=== PATIENT | female | born 1975 | race Caucasian/White ===

== ENCOUNTER 2017-11-03 22:47 | Emergency (ER) | payer BC, OTHER ==
--- NOTE | 2017-11-03 23:21 | ED ---
General Adult HPI - General Chief complaint: Extremity Injury, Lower Stated complaint: R Knee Injury Time Seen by Provider: 11/03/17 23:08 Source: patient Mode of arrival: wheelchair Limitations: no limitations - History of Present Illness Initial comments: patient presents with chief complaint of right knee pain. The patient stated that she was walking up the stairs and felt a pop. Patient states that she has pain with walking now. She does not identify any specific incident or injury. Aggravating factors are weightbearing and moving the knee. Alleviating factors are rest. Timing is constant. Patient has a history of arthritis in the right knee. - Related Data Home Medications Medication Instructions Recorded Confirmed Bisoprolol-Hctz 2.5-6.25 mg [Ziac 1 tab PO DAILY 04/15/16 11/03/17 2.5-6.25 MG] Cranberry Fruit Extract [Cranberry] 200 mg PO DAILY 11/03/17 11/03/17 Naproxen 500 mg PO BID PRN 11/03/17 11/03/17 diphenhydrAMINE HCL [Benadryl] 25 mg PO DAILY PRN 11/03/17 11/03/17 methylPREDNISolone [Medrol Dose See Taper PO DIRECTED 11/03/17 11/03/17 Pack] Previous Rx's Medication Instructions Recorded HYDROcodone/APAP 5-325MG [[place] 1 tab PO Q6HR PRN #12 tab 11/04/17 5-325] Allergies Allergy/AdvReac Type Severity Reaction Status Date / Time Sulfa (Sulfonamide Allergy Rash/Hives Verified 11/03/17 23:12 Antibiotics) Review of Systems ROS Statement: Those systems with pertinent positive or pertinent negative responses have been documented in the HPI. ROS Other: All systems not noted in ROS Statement are negative. Constitutional: Denies: fever Eyes: Denies: vision change ENT: Denies: throat pain Respiratory: Denies: cough Cardiovascular: Denies: chest pain Gastrointestinal: Denies: abdominal pain Genitourinary: Denies: dysuria Musculoskeletal: Reports: arthralgia. Denies: back pain Skin: Denies: rash Neurological: Denies: headache Past Medical History Past Medical History: Hypertension Additional Past Medical History / Comment(s): migraines History of Any Multi-Drug Resistant Organisms: None Reported Past Surgical History: Tubal Ligation Additional Past Surgical History / Comment(s): uterine ablation Past Psychological History: No Psychological Hx Reported Smoking Status: Never smoker Past Alcohol Use History: None Reported Past Drug Use History: None Reported General Exam Limitations: no limitations General appearance: alert, in no apparent distress Head exam: Present: atraumatic, normocephalic Respiratory exam: Present: normal lung sounds bilaterally Cardiovascular Exam: Present: regular rate, normal rhythm GI/Abdominal exam: Present: soft Extremities exam: Present: tenderness, other (examination of the right knee does not show impressive swelling or ecchymosis. There is no tenderness to palpation of the popliteal fossa. There is some valgus tests are negative. Anterior drawer test is positive for pain) Back exam: Present: normal inspection Neurological exam: Present: alert, oriented X3 Psychiatric exam: Present: normal affect, normal mood Skin exam: Present: warm, dry, intact Course Vital Signs 11/03/17 23:04 Temperature 98.2 F Pulse Rate 90 Respiratory 18 Rate Blood Pressure 120/71 O2 Sat by Pulse 98 Oximetry Medical Decision Making - Medical Decision Making patient presents with a chief complaint of right knee pain after she heard a pop walking up the stairs. Physical examination shows pain with anterior drawer test. Knee is otherwise unremarkable. X-rays of the right knee are negative for acute fractures. I discussed the findings and results of the patient. I discussed that she will likely need orthopedic follow-up and an MRI as there is a suspected ACL injury. Patient was given a dose of [place] in the emergency department. I discussed that I will give her a short course of pain medication and that she can use naproxen or Motrin as needed. Patient will be placed in a knee brace and discharged with crutches. She was given Signs and symptoms that should probably return visit to the emergency department. She was instructed to follow with orthopedics and primary care. Disposition Clinical Impression: Knee pain, acute Disposition: HOME SELF-CARE Condition: Good Instructions: Knee Sprain (ED), ACL Injury (ED) Referrals: Louann Oglesby MD [Primary Care Provider] - 1-2 days
[2017-11-03] MEDS ORDERED: HYDROcodone/APAP 5-325MG 1 EACH TAB PO STA (23:28)
--- NOTE | 2017-11-03 23:56 | XR ---
EXAM: XR Right Knee, 3 views CLINICAL HISTORY: Reason: Pain TECHNIQUE: Three views of the right knee. COMPARISON: No relevant prior studies available. FINDINGS: Bones/joints: No evidence of fracture or dislocation. No significant arthritic changes. No evidence of bony erosion. Soft tissues: No evidence of knee joint effusion. IMPRESSION: No significant bone or joint abnormalities.
[2017-11-04 00:56] VITALS: BP 118/70; PULSE 58; RESP 16
[2017-11-04 01:17] VITALS: TEMP 97.4
== END 2017-11-04 01:12 | disposition home or self-care (01) ==
LOC: EC 22:47
DX: M25.561 Pain in right knee (principal); I10 Essential (primary) hypertension; M17.11 Unilateral primary osteoarthritis, right knee; Z79.52 Long term (current) use of systemic steroids; Z79.899 Other long term (current) drug therapy; Z88.2 Allergy status to sulfonamides; X50.9XXA Other and unspecified overexertion or strenuous movements or postures, initial encounter; Y93.01 Activity, walking, marching and hiking
CPT/HCPCS: 99283

== ENCOUNTER → 2019-02-25 | Outpatient (CLI) | payer OTHER ==
--- NOTE | 2019-02-25 09:49 | US ---
EXAMINATION TYPE: US liver DATE OF EXAM: 02/25/2019 COMPARISON: NONE CLINICAL HISTORY: R94.5 Abn liver function test. Abnormal liver function test, intermittent abdomen p ain, hx of cholecystectomy EXAM MEASUREMENTS: Liver Length: 17.3 cm Gallbladder Wall: surgically absent CBD: 0.5 cm Right Kidney: 13.2 x 6.0 x 5.3 cm Difficult and limited study due to patient body habitus Pancreas: limited by overlying midline bowel gas Liver: measures in upper limits of normal, attenuating, heterogeneous Gallbladder: surgically absent Evidence for sonographic Alston's sign: no CBD: wnl Right Kidney: wnl IMPRESSION: 1. Liver is increased in attenuation. Finding is nonspecific and be seen with fatty infiltration, hep atitis or diffuse hepatocellular disease.
== END | disposition home or self-care (01) ==
LOC: RADUSWWP 09:13
PROVIDERS: ATTEND Internal Medicine
DX: R93.2 Abnormal findings on diagnostic imaging of liver and biliary tract (principal); R94.5 Abnormal results of liver function studies
CPT/HCPCS: 76705

== ENCOUNTER → 2019-08-25 | Outpatient (CLI) | payer OTHER ==
--- NOTE | 2019-08-25 15:46 | XR ---
Right wrist HISTORY: Right wrist pain 4 views of the right wrist Bone mineralization, joint spaces and alignment are maintained. Dorsal angulation of the ulna on the lateral exam may be positional, correlate. IMPRESSION: No evident fracture. Additional findings above.
== END | disposition home or self-care (01) ==
LOC: RADXRMAIN 15:00
PROVIDERS: ATTEND Emergency Medicine
DX: M21.831 Other specified acquired deformities of right forearm (principal)

== ENCOUNTER → 2021-03-17 | Outpatient (CLI) | payer OTHER ==
--- NOTE | 2021-03-17 21:34 | MR ---
EXAMINATION TYPE: MR knee RT wo con DATE OF EXAM: 03/17/2021 COMPARISON: None HISTORY: Right knee pain, pain behind knee, and locking for 3 years. Multiplanar multiecho imaging of the right knee was performed without contrast. The anterior and posterior cruciate ligaments are intact. There is irregular 3.4 x 2 cm area of incre ased signal on the proton density images in the proximal tibial metaphysis. This has decreased signal on T1 images. This could be a fibroadenoma. Margins have sharp edges and benign appearance. There is no expansion. There is 12 x 8 mm focus of increased signal in the anterior proximal tibia close to t he articular surface. This could be degenerative cyst formation. There is thickening of the posterior aspect of the posterior cruciate ligament. There is horizontal increased signal through the anterior horn of the lateral meniscus. This extends to the inferior surface. There is some degenerative thinning of the medial meniscus. There is mild sp urring of the femoral and tibial condyles. There is no evidence of a fracture. The collateral ligamen ts appear intact. There is 27 x 4 mm popliteal cyst. IMPRESSION: Osteoarthritic changes at the knee joint. Large horizontal tear of the anterior horn of the lateral m eniscus. Degenerative thinning of the medial meniscus. No ligamentous tear. Largest lesion in the pro ximal tibia is probably benign. Degenerative cyst formation in the proximal tibia. Mild knee joint ef fusion. Small popliteal cyst.
== END | disposition home or self-care (01) ==
LOC: RADMRIMAIN 14:18
PROVIDERS: ATTEND Orthopaedic Surgery
DX: M23.351 Other meniscus derangements, posterior horn of lateral meniscus, right knee (principal); M17.11 Unilateral primary osteoarthritis, right knee; M71.21 Synovial cyst of popliteal space [Baker], right knee

== ENCOUNTER → 2021-04-11 | Outpatient (CLI) | payer OTHER ==
[2021-04-11 14:48] LABS: Basophils % (A) 0 %; Eosinophils # (A) 0.3 k/uL (0-0.7); Eosinophils % (A) 4 %; HCT 39.4 % (34.0-46.0); HGB 13.3 gm/dL (11.4-16.0); Lymphocytes # (A) 1.8 k/uL (1.0-4.8); Lymphocytes % (A) 23 %; MCH 31.5 pg (25.0-35.0); MCHC 33.8 g/dL (31.0-37.0); MCV 93.2 fL (80.0-100.0); Mean Platelet Volume 7.9; Monocytes # (A) 0.5 k/uL (0-1.0); Monocytes % (A) 6 %; Neutrophils % (A) 65 %; Platelet Count 202 k/uL (150-450); RBC 4.23 m/uL (3.80-5.40); RDW 12.6 % (11.5-15.5); WBC 7.7 k/uL (3.8-10.6)
== END | disposition home or self-care (01) ==
LOC: LABPAT 13:44
PROVIDERS: ATTEND Orthopaedic Surgery
DX: Z01.812 Encounter for preprocedural laboratory examination (principal); M23.91 Unspecified internal derangement of right knee
CPT/HCPCS: 36415; 80051; 85025

== ENCOUNTER → 2021-04-23 | Outpatient (CLI) | payer OTHER | END | disposition home or self-care (01) | LOC: LABPAT 10:13 | PROVIDERS: ATTEND Orthopaedic Surgery | DX: Z01.818 Encounter for other preprocedural examination (principal); I10 Essential (primary) hypertension; R94.31 Abnormal electrocardiogram [ECG] [EKG] | CPT/HCPCS: 93005 ==

== ENCOUNTER 2021-04-26 12:23 | Day surgery (SDC) | payer OTHER ==
[2021-04-19 14:58] VITALS: BMI 40.3
--- NOTE | 2021-04-25 22:04 | HP ---
HISTORY AND PHYSICAL REASON FOR ADMISSION: Surgery scheduled for 04/26/2021 HISTORY OF PRESENT ILLNESS: Arina Polanco is a 45-year-old patient seen with progressive right knee pain. We discussed options. This patient elected to proceed with arthroscopy. Consent was obtained. PAST MEDICAL HISTORY: Hypertension, chronic low back pain. SURGICAL HISTORY: Knee arthroscopy. DAILY MEDICATIONS: Hydrocodone, aspirin, bisoprolol. ALLERGIES: SULFA. SOCIAL HISTORY: She denies current tobacco use. PHYSICAL EVALUATION OF THE RIGHT KNEE: Range of motion zero to 130. Mild effusion. Tenderness medial and lateral joint lines. Positive medial Robbin's. Patellar crepitus with range of motion. Ligaments stable. Hip rotation without pain. Distal neurovascular exam is intact. RADIOGRAPHS: Radiographs of the right knee revealed mild osteoarthritis MRI right knee revealed meniscal tear and joint effusion. IMPRESSION: 1. Internal derangement of right knee with meniscal tear. 2. Hypertension. 3. Chronic back pain. PLAN: Right knee arthroscopy with partial meniscectomy and debridement. Surgery scheduled for 04/26/2021. MMODL / IJN: [id number] /
[~2021-04-26 12:23] MED LIST: DEXAMETHASONE SOD PHOSPHATE 4 MG/ML 1 ML VIAL IV ONE; HYDROmorphone 0.5 MG/0.5 ML SYRINGE IVP PRN; LACTATED RINGERS 1,000 ML IV SCH; ONDANSETRON 4 MG/2 ML VIAL IVP ONE
[2021-04-26 13:12] VITALS: TEMP 97
[2021-04-26] MEDS ORDERED: LIDOCAINE 1% (10MG/ML) FOR IV START INTRADERMA ONE (13:19)
[2021-04-26] MEDS ORDERED: BUPIVACAINE (PF) 0.25% 30 ML VIAL SQ ONE (13:39)
[2021-04-26] MEDS ORDERED: LIDOCAINE 1% INJ 10MG/ML (20 ML MDV) ONE (13:40)
[2021-04-26] MEDS ORDERED: MIDAZOLAM 2 MG/2 ML VIAL ONE (13:40)
[2021-04-26] MEDS ORDERED: KETOROLAC 15 MG/ML 1 ML VIAL ONE (13:40)
[2021-04-26] MEDS ORDERED: PROPOFOL 10 MG/ML 20 ML VIAL IV ONE (13:40)
[2021-04-26] MEDS ORDERED: fentaNYL (PF) 50 MCG/ML 2 ML AMP ONE (13:40)
[2021-04-26] MEDS ORDERED: SUCCINYLCHOLINE CHLORIDE 100 MG/5 ML SYR IV ONE (13:40)
--- NOTE | 2021-04-26 14:27 | P.OP ---
Date of Procedure: 04/26/21 Preoperative Diagnosis: Internal derangement right knee Postoperative Diagnosis: 1. Tear medial meniscus right knee 2. Partial ACL tear right knee 3. Grade 2 chondromalacia medial femoral condyle 4. Reactive synovitis medial, lateral and suprapatellar compartments right knee Procedure(s) Performed: 1. Arthroscopic partial medial meniscectomy right knee 2. Arthroscopic chondroplasty medial femoral condyle right knee 3. Arthroscopic debridement ACL tear 4. Arthroscopic partial synovectomy medial, lateral and suprapatellar compartments right knee Anesthesia: LOUISEA, local Surgeon: Ramez Croft Estimated Blood Loss (ml): 7 Pathology: none sent Condition: stable Disposition: PACU Indications for Procedure: 45-year-old patient seen with progressive right knee pain. After treatment options were discussed, she elected to proceed with arthroscopy. Operative Findings: see description of procedure Description of Procedure: Patient was taken to the operative suite. Patient underwent a general anesthetic by the department of anesthesia. Patient was given preoperative antibiotics. The right lower extremity was placed in a well-padded arthroscopic leg bedolla. The right leg was prepped and draped in the normal sterile orthopedic fashion. A lateral parapatellar and suprapatellar incision was made. Trochars were inserted. Arthroscopy was initiated. Suprapatellar pouch revealed diffuse thick reactive synovitis. The patellofemoral joint appeared to articulate congruently. There was grade 1/2 chondromalacia patella with no osteochondral tears present.. The scope was guided into the medial gutter. No loose bodies or plica were identified. The scope was then guided into the medial compartment. A medial parapatellar incision was made. Trocar inserted followed by probe. There was a radial tear involving the posterior horn of the medial meniscus. There were grade 2 chondromalacia changes of the medial femoral condyle with some osteochondral flap tears present. There was thick reactive synovitis anteriorly. I performed a partial medial meniscectomy getting down to stable meniscal tissue. I performed a chondroplasty of the medial femoral condyle getting down to stable osteochondral tissue. I performed a partial synovectomy decompressing the thick reactive synovitis anteriorly. Shaver was removed. The residual meniscus was stable. The residual osteochondral surface was stable. There was good decompression of the synovitis. Scope and probe were then guided into the intercondylar notch. There was significant partial tearing of the anterior cruciate ligament. I introduced a motorized shaver and debrided that down to stable ligamentous tissue. I estimated approximately 60% debridement of the ACL with maybe 40% of the fibers remaining. The residual fibers of the ACL appeared stable with some good intraoperative stability of the knee. The scope and probe were then guided into lateral compartment. Lateral meniscus was probed and was found to be stable. There was no significant chondromalacia present. There was some reactive synovitis anteriorly. I introduced a motorized shaver and performed a partial synovectomy. The shaver was removed. There was good decompression of the synovitis. I guided the scope into the suprapatellar compartment. I introduced a motorized shaver and debrided some piecemeal fragments of meniscus I encountered. I performed a partial synovectomy. Shaver was removed. There appeared be good decompression of the synovitis. I took one more look around the entire knee, no residual debris. The joint was infiltrated with .25% Marcaine. Steri-Strips were applied to the portal sites. Sterile dressings were applied. The patient was placed into a NITZA hose. No tourniquet was utilized. The patient was awakened, transferred to a bed and taken to recovery stable satisfactory condition.
[2021-04-26 15:29] VITALS: BP 133/78; PULSE 78; RESP 18
== END 2021-04-26 15:38 | disposition home or self-care (01) ==
LOC: OR 12:23
PROVIDERS: ATTEND Orthopaedic Surgery
DX: M23.203 Derangement of unspecified medial meniscus due to old tear or injury, right knee (principal); S83.511A Sprain of anterior cruciate ligament of right knee, initial encounter; X58.XXXA Exposure to other specified factors, initial encounter; M22.41 Chondromalacia patellae, right knee; M65.861 Other synovitis and tenosynovitis, right lower leg; I10 Essential (primary) hypertension; G89.29 Other chronic pain; M54.9 Dorsalgia, unspecified; Z98.890 Other specified postprocedural states; Z90.49 Acquired absence of other specified parts of digestive tract; Z98.51 Tubal ligation status; Z79.82 Long term (current) use of aspirin; Z79.891 Long term (current) use of opiate analgesic; Z79.899 Other long term (current) drug therapy; Z88.2 Allergy status to sulfonamides
CPT/HCPCS: 29881; 81025; J2250; J1100; J0690; J2405; J2001; J3010; J1885; J0330; J2704; J1170

== ENCOUNTER 2022-04-22 08:56 | Emergency (ER) | payer OTHER ==
[2022-04-22 09:15] VITALS: TEMP 98.2
--- NOTE | 2022-04-22 10:03 | ED ---
Back Pain HPI - General Chief Complaint: Back Pain/Injury Stated Complaint: back pain Time Seen by Provider: 04/22/22 09:16 Source: patient, RN notes reviewed Limitations: no limitations - History of Present Illness Initial Comments: 46-year-old female presents to emergency Department chief myeloma back pain. She's been having increasing issues with her back last couple weeks this is she's been moving. Patient states been lifting large amount of boxes. Patient did have some pain and radiates down her legs but is mostly located in the low back at this time. She denies any bowel, bladder and Kienitz retention or saddle anesthesias. Patient states she is on chronic [place] for knee pain prescribed by Dr. Velásquez. Patient was seen at [facility] and received a shot of steroids, gabapentin, Norflex. Patient states that has not helped states he keeps returning though she does admit that she has subsided moving. - Related Data Home Medications Medication Instructions Recorded Confirmed Bisoprol/Hydrochlorothiazide [Ziac 1 tab PO QAM 04/19/21 04/22/22 2.5-6.25 MG] HYDROcodone/APAP 7.5-325MG [[place] 1 tab PO BID PRN 04/19/21 04/22/22 7.5-325] Cyanocobalamin (Vitamin B-12) 1,000 mcg PO DAILY 04/22/22 04/22/22 [Vitamin B-12] Gabapentin 300 mg PO BID 04/22/22 04/22/22 Nitrofurantoin Monohyd/M-Cryst 100 mg PO Q12HR 04/22/22 04/22/22 [Macrobid] Orphenadrine [Norflex] 100 mg PO Q12H 04/22/22 04/22/22 Previous Rx's Medication Instructions Recorded Cyclobenzaprine [Flexeril] 10 mg PO TID PRN #15 tab 04/22/22 predniSONE 50 mg PO DAILY #5 tab 04/22/22 Allergies Allergy/AdvReac Type Severity Reaction Status Date / Time Sulfa (Sulfonamide Allergy Rash/Hives Verified 04/22/22 10:51 Antibiotics) Review of Systems ROS Statement: Those systems with pertinent positive or pertinent negative responses have been documented in the HPI. ROS Other: All systems not noted in ROS Statement are negative. Past Medical History Past Medical History: Hypertension Additional Past Medical History / Comment(s): migraines History of Any Multi-Drug Resistant Organisms: None Reported Past Surgical History: Tubal Ligation Additional Past Surgical History / Comment(s): uterine ablation Past Psychological History: No Psychological Hx Reported Past Alcohol Use History: None Reported Past Drug Use History: None Reported General Exam Limitations: no limitations General appearance: alert, in no apparent distress Head exam: Present: atraumatic, normocephalic, normal inspection Eye exam: Present: normal appearance, PERRL, EOMI. Absent: scleral icterus, conjunctival injection, periorbital swelling ENT exam: Present: normal exam, normal oropharynx, mucous membranes moist Neck exam: Present: normal inspection, full ROM. Absent: tenderness, meningismus, lymphadenopathy Respiratory exam: Present: normal lung sounds bilaterally. Absent: respiratory distress, wheezes, rales, rhonchi, stridor Cardiovascular Exam: Present: regular rate, normal rhythm, normal heart sounds. Absent: systolic murmur, diastolic murmur, rubs, gallop, clicks GI/Abdominal exam: Present: soft, normal bowel sounds. Absent: distended, tenderness, guarding, rebound, rigid Back exam: Present: full ROM, tenderness, muscle spasm, paraspinal tenderness. Absent: CVA tenderness (R), CVA tenderness (L) Neurological exam: Present: alert, oriented X3, CN II-XII intact, reflexes normal. Absent: motor sensory deficit Course Vital Signs 04/22/22 09:12 Temperature 98.2 F Respiratory 18 Rate Blood Pressure 134/83 O2 Sat by Pulse 96 Oximetry Medical Decision Making - Medical Decision Making X-ray shows evidence of lumbar arthritic changes patient has no red flag symptoms she is neurologically intact. Patient is advised follow-up with her pain management physician or orthopedics. Return parameters were discussed. - Lab Data Lab Results 04/22/22 Range/Units 09:42 Urine Color Yellow Urine Appearance Cloudy H (Clear) Urine pH 6.0 (5.0-8.0) Ur Specific [place] 1.021 (1.001-1.035) Urine Protein Negative (Negative) Urine Glucose (UA) Negative (Negative) Urine Ketones Negative (Negative) Urine Blood Negative (Negative) Urine Nitrite Negative (Negative) Urine Bilirubin Negative (Negative) Urine Urobilinogen <2.0 (<2.0) mg/dL Ur Leukocyte Esterase Large H (Negative) Urine RBC 3 (0-5) /hpf Urine WBC 25 H (0-5) /hpf Ur Squamous Epith Cells 14 H (0-4) /hpf Urine Bacteria Rare H (None) /hpf Disposition Clinical Impression: Lumbar back pain Disposition: HOME SELF-CARE Condition: Stable Instructions (If sedation given, give patient instructions): Acute Low Back Pain (ED) Additional Instructions: Please return to the Emergency Department if symptoms worsen or any other c oncerns. Prescriptions: Cyclobenzaprine [Flexeril] 10 mg PO TID PRN #15 tab PRN Reason: Muscle Spasm predniSONE 50 mg PO DAILY #5 tab Is patient prescribed a controlled substance at d/c from ED?: No Referrals: Louann Oglesby MD [Primary Care Provider] - 1-2 days Lala Aguilar DO [Doctor of Osteopathic Medicine] - 1-2 days Time of Disposition: 11:12
[2022-04-22 10:15] LABS: Appearance,Urine Cloudy (Clear); Bacteria,Urine Rare /hpf; Bilirubin,Urine Negative (Negative); Blood,Urine Negative (Negative); Color,Urine Yellow; Glucose,Urine (UA) Negative (Negative); Ketones,Urine Negative (Negative); Leukocyte Esterase,Urine Large (Negative); Nitrite,Urine Negative (Negative); Protein,Urine Negative (Negative); RBC,Urine 3 /hpf (0-5); Specific Gravity,Urine 1.021 (1.001-1.035); Squamous Epithelial Cell,Urine 14 /hpf (0-4); Urobilinogen,Urine <2.0 mg/dL (<2.0); WBC,Urine 25 /hpf (0-5)
--- NOTE | 2022-04-22 10:51 | XR ---
EXAMINATION TYPE: XR lumbar spine 3V DATE OF EXAM: 04/22/2022 Comparison: None Clinical History: 46-year-old female pain after lifting Findings: Cholecystectomy clips. 5 lumbar type vertebral bodies. Facet arthropathy lower lumbar spine. Vertebra l body heights are preserved and alignment is maintained. Impression: Facet arthropathy lower lumbar spine. No vertebral compression collapse or malalignment.
[2022-04-22 11:12] VITALS: BP 138/87; PULSE 53; RESP 16
== END 2022-04-22 11:32 | disposition home or self-care (01) ==
LOC: EC 08:56
DX: M54.50 Low back pain, unspecified (principal); I10 Essential (primary) hypertension; Z88.2 Allergy status to sulfonamides
CPT/HCPCS: 72100; 81001; 87086

== ENCOUNTER 2024-08-06 10:18 | Inpatient (IN) | payer MEDICAID, OTHER ==
--- NOTE | 2024-08-06 10:55 | ED ---
General Adult HPI - General Chief complaint: Psychiatric Symptoms Stated complaint: Mental Health Time Seen by Provider: 08/06/24 10:33 Source: patient, RN notes reviewed Mode of arrival: EMS Limitations: no limitations - History of Present Illness Initial comments: Patient is a 48-year-old female present to the emergency department with concerns with depression. Symptoms have been present for the past several months. Patient has several stressors. Patient stopped her medications around a month ago. Patient is not sleeping well. Patient has suicidal ideation with plan of overdose. No homicidal thoughts. No new physical complaints. No alcohol or street drug use. - Related Data Home Medications Medication Instructions Recorded Confirmed Bisoprolol-Hctz 10-6.25 mg [Ziac 1 tab PO DAILY 08/06/24 08/06/24 10-6.25 MG] Ergocalciferol (Vitamin D2) 1,250 mcg PO DIRECTED 08/06/24 08/06/24 [Drisdol (50,000 Iu)] Hydrocodone/Acetaminophen 7.5/300mg 1 tab PO TID PRN 08/06/24 08/06/24 Levothyroxine Sodium [Synthroid] 50 mcg PO DAILY 08/06/24 08/06/24 Losartan Potassium 100 mg PO DAILY 08/06/24 08/06/24 Pravastatin Sodium [Pravachol] 20 mg PO DAILY 08/06/24 08/06/24 metFORMIN HCL 500 mg PO BID 08/06/24 08/06/24 Allergies Allergy/AdvReac Type Severity Reaction Status Date / Time Sulfa (Sulfonamide Allergy Rash/Hives Verified 08/06/24 12:09 Antibiotics) Review of Systems ROS Statement: Those systems with pertinent positive or pertinent negative responses have been documented in the HPI. ROS Other: All systems not noted in ROS Statement are negative. Constitutional: Denies: fever Eyes: Denies: eye pain ENT: Denies: ear pain Respiratory: Denies: cough Cardiovascular: Denies: chest pain Endocrine: Denies: fatigue Gastrointestinal: Denies: abdominal pain Psychiatric: Reports: as per HPI, anxiety, depression, suicidal thoughts Past Medical History Past Medical History: Diabetes Mellitus, Hypertension Additional Past Medical History / Comment(s): migraines History of Any Multi-Drug Resistant Organisms: None Reported Past Surgical History: Tubal Ligation Additional Past Surgical History / Comment(s): uterine ablation Past Psychological History: No Psychological Hx Reported Past Alcohol Use History: None Reported Past Drug Use History: None Reported General Exam Limitations: no limitations General appearance: alert, in no apparent distress Head exam: Present: normocephalic Eye exam: Present: normal appearance Respiratory exam: Present: normal lung sounds bilaterally Cardiovascular Exam: Present: regular rate, normal rhythm GI/Abdominal exam: Present: soft. Absent: tenderness Extremities exam: Present: normal inspection Neurological exam: Present: alert Psychiatric exam: Present: depressed Skin exam: Present: normal color Course Vital Signs 08/06/24 10:24 Temperature 97.9 F Pulse Rate 67 Respiratory 18 Rate Blood Pressure 167/103 O2 Sat by Pulse 97 Oximetry Medical Decision Making - Medical Decision Making Was pt. sent in by a medical professional or institution (, PA, SILVER CLEANER, urgent care, hospital, or usp...) When possible be specific @ -No Did you speak to anyone other than the patient for history (EMS, parent, family, police, friend...)? What history was obtained from this source @ -No Did you review nursing and triage notes (agree or disagree)? Why? @ -I reviewed and agree with nursing and triage notes Were old charts reviewed (outside hosp., previous admission, EMS record, old EKG, old radiological studies, urgent care reports/EKG's, usp records)? Report findings @ -No old charts were reviewed Differential Diagnosis (chest pain, altered mental status, abdominal pain women, abdominal pain men, vaginal bleeding, weakness, fever, dyspnea, syncope, headache, dizziness, GI bleed, back pain, seizure, CVA, palpatations, mental health, musculoskeletal)? @ -Differential Mental Health Depression, anxiety, bipolar, psychosis, schizophrenia, borderline personality, situational depression, adjustment disorder, behavioral disorder, brain tumor, malingering, substance abuse, encephalopathy, medication reaction, dementia, hypothyroidism, degenerative neurologic disorder, lupus.... This is not meant to be all-inclusive list EKG interpreted by me (3pts min.). @ -As above X-rays interpreted by me (1pt min.). @ -None done CT interpreted by me (1pt min.). @ -None done U/S interpreted by me (1pt. min.). @ -None done What testing was considered but not performed or refused? (CT, X-rays, U/S, labs)? Why? @ -None What meds were considered but not given or refused? Why? @ -None Did you discuss the management of the patient with other professionals (professionals i.e. , PA, SILVER CLEANER, lab, RT, psych nurse, social psychologist, hand tube winder, teacher, campus safety officer, onsite case manager)? Give summary @ -Case discussed with mental health social psychologist with plans for admission Was smoking cessation discussed for >3mins.? @ -No Was critical care preformed (if so, how long)? @ -No Were there social determinants of health that impacted care today? How? (Homelessness, low income, unemployed, alcoholism, drug addiction, transportation, low edu. Level, literacy, decrease access to med. care, care home, re hab)? @ -No Was there de-escalation of care discussed even if they declined (Discuss DNR or withdrawal of care, Hospice)? DNR status @ -No What co-morbidities impacted this encounter? (DM, HTN, Smoking, COPD, CAD, Cancer, CVA, ARF, Chemo, Hep., AIDS, mental health diagnosis, sleep apnea, morbid obesity)? @ -None Was patient admitted / discharged? Hospital course, mention meds given and route, prescriptions, significant lab abnormalities, going to OR and other pertinent info. @ -Patient does present with depression and suicidal thoughts. Patient will be admitted for psychiatric care Undiagnosed new problem with uncertain prognosis? @ -No Drug Therapy requiring intensive monitoring for toxicity (Heparin, Nitro, Insulin, Cardizem)? @ -No Were any procedures done? @ -No Diagnosis/symptom? @ -Depression, suicidal ideation Acute, or Chronic, or Acute on Chronic? @ -Acute, acute Uncomplicated (without systemic symptoms) or Complicated (systemic symptoms)? @ -Default Side effects of treatment? @ -No Exacerbation, Progression, or Severe Exacerbation? @ -No Poses a threat to life or bodily function? How? (Chest pain, USA, MT, pneumonia, PE, COPD, DKA, ARF, appy, cholecystitis, CVA, Diverticulitis, Homicidal, Suicidal, threat to staff... and all critical care pts) @ -To life - Lab Data Lab Results 08/06/24 Range/Units 10:56 Urine Opiates Screen Detected H (NotDetected) Ur Oxycodone Screen Not Detected (NotDetected) Urine Methadone Screen Not Detected (NotDetected) Ur Barbiturates Screen Not Detected (NotDetected) U Tricyclic Antidepress Not Detected (NotDetected) Ur Phencyclidine Scrn Not Detected (NotDetected) Ur Amphetamines Screen Not Detected (NotDetected) U Methamphetamines Scrn Not Detected (NotDetected) U Benzodiazepines Scrn Not Detected (NotDetected) Urine Cocaine Screen Not Detected (NotDetected) U Marijuana (THC) Screen Not Detected (NotDetected) Disposition Clinical Impression: Depression, Suicidal ideation Disposition: TRANSFER TO PSYCH HOSP/UNIT Is patient prescribed a controlled substance at d/c from ED?: No Referrals: Sameer Fatima MD [Primary Care Provider] - 1-2 days Time of Disposition: 15:37
[2024-08-06 11:27] LABS: Amphetamine Screen,Urine Not Detected (NotDetected); Barbiturate Screen,Urine Not Detected (NotDetected); Benzodiazepines Screen,Urine Not Detected (NotDetected); Cocaine Screen,Urine Not Detected (NotDetected); Methadone Screen, Urine Not Detected (NotDetected); Opiate Screen,Urine Detected (NotDetected); Oxycodone Screen, Urine Not Detected (NotDetected); Phencyclidine Screen,Urine Not Detected (NotDetected); Tricyclic Antidepressant,Urine Not Detected (NotDetected); Urn Cannabinoid Scrn Not Detected (NotDetected)
[2024-08-06] MEDS ORDERED: LORazepam 2 MG/ML INJ IM PRN (22:15)
[2024-08-06] MEDS ORDERED: HALOPERIDOL LACTATE 5 MG/ML 1 ML VIAL IM PRN (22:15)
[2024-08-06] MEDS ORDERED: MAGNESIUM HYDROXIDE 2,400 MG/30 ML CUP PO PRN (22:15)
[2024-08-06] MEDS ORDERED: MAG HYDROX/AL HYDROX/SIMETH 355 ML BOTTLE PO PRN (22:15)
[2024-08-06] MEDS ORDERED: haloperidoL 5 MG TAB PO PRN (22:15)
[2024-08-06] MEDS ORDERED: LORazepam 1 MG TAB PO PRN (22:15)
[2024-08-06] MEDS: ERGOCALCIFEROL 1,250 MCG (50,000 IU) CAPSULE PO SCH (22:56)
[2024-08-07] MEDS: LEVOTHYROXINE 50 MCG TAB PO SCH (06:40)
[2024-08-07 07:30] LABS: Basophils % (A) 1 %; Eosinophils # (A) 0.2 k/uL (0-0.7); Eosinophils % (A) 4 %; HCT 40.3 % (34.0-46.0); HGB 13.2 gm/dL (11.4-16.0); Lymphocytes # (A) 1.9 k/uL (1.0-4.8); Lymphocytes % (A) 33 %; MCHC 32.7 g/dL (31.0-37.0); Mean Platelet Volume 8.9; Monocytes # (A) 0.3 k/uL (0-1.0); Monocytes % (A) 6 %; Neutrophils # (A) 3.2 k/uL (1.3-7.7); Neutrophils % (A) 55 %; Platelet Count 233 k/uL (150-450); RBC 4.38 m/uL (3.80-5.40); RDW 12.3 % (11.5-15.5); WBC 5.8 k/uL (3.8-10.6)
[2024-08-07 07:44] LABS: ALT 39 U/L (4-34); AST 35 U/L (14-36); African American GFR (CKD) >90 (>60 ml/min/1.73 sqM); Albumin 3.7 g/dL (3.5-5.0); Alkaline Phosphatase 125 U/L (38-126); Anion Gap 4 mmol/L; Blood Urea Nitrogen 10 mg/dL (7-17); Calcium 10.3 mg/dL (8.4-10.2); Carbon Dioxide 29 mmol/L (22-30); Chloride 106 mmol/L (98-107); Glucose 188 mg/dL (74-99); Non-African American GFR(CKD) >90 (>60 ml/min/1.73 sqM); Potassium 4.2 mmol/L (3.5-5.1); Sodium 139 mmol/L (137-145); Total Bilirubin 0.6 mg/dL (0.2-1.3); Total Protein 6.4 g/dL (6.3-8.2)
[2024-08-07 08:10] LABS: Glucose,Whole Blood 191 mg/dL (70-110)
[2024-08-07] MEDS: NICOTINE 14MG/24HR PATCH TRANSDERM SCH (09:40)
[2024-08-07] MEDS: metFORMIN 500 MG TAB PO SCH (09:40)
[2024-08-07] MEDS: BISOPROLOL-HCTZ 10-6.25 MG 1 EACH TAB PO SCH (09:40)
[2024-08-07] MEDS: PRAVASTATIN SODIUM 20 MG TAB PO SCH (09:40)
[2024-08-07] MEDS: LOSARTAN 50 MG TAB PO SCH (09:40)
--- NOTE | 2024-08-07 10:49 | P.HP ---
Psychiatric H&P - . H&P Date: 08/07/24 History & Physical: Allergies Allergy/AdvReac Type Severity Reaction Status Date / Time Sulfa (Sulfonamide Allergy Rash/Hives Verified 08/06/24 12:09 Antibiotics) Vital Signs Temp 98.4 F 08/07/24 06:34 Pulse 102 H 08/07/24 09:44 Resp 16 08/07/24 06:34 BP 170/110 08/07/24 09:44 Pulse Ox 98 08/07/24 06:34 FiO2 Intake & Output 08/06/24 08/07/24 08/07/24 18:59 06:59 18:59 Weight 109.769 kg 109.401 kg Laboratory Last Values WBC 5.8 k/uL (3.8-10.6) 08/07/24 07:14 RBC 4.38 m/uL (3.80-5.40) 08/07/24 07:14 Hgb 13.2 gm/dL (11.4-16.0) 08/07/24 07:14 Hct 40.3 % (34.0-46.0) 08/07/24 07:14 MCV 92.0 fL (80.0-100.0) 08/07/24 07:14 MCH 30.0 pg (25.0-35.0) 08/07/24 07:14 MCHC 32.7 g/dL (31.0-37.0) 08/07/24 07:14 RDW 12.3 % (11.5-15.5) 08/07/24 07:14 Plt Count 233 k/uL (150-450) 08/07/24 07:14 MPV 8.9 08/07/24 07:14 Neutrophils % 55 % 08/07/24 07:14 Lymphocytes % 33 % 08/07/24 07:14 Monocytes % 6 % 08/07/24 07:14 Eosinophils % 4 % 08/07/24 07:14 Basophils % 1 % 08/07/24 07:14 Neutrophils # 3.2 k/uL (1.3-7.7) 08/07/24 07:14 Lymphocytes # 1.9 k/uL (1.0-4.8) 08/07/24 07:14 Monocytes # 0.3 k/uL (0-1.0) 08/07/24 07:14 Eosinophils # 0.2 k/uL (0-0.7) 08/07/24 07:14 Basophils # 0.0 k/uL (0-0.2) 08/07/24 07:14 Sodium 139 mmol/L (137-145) 08/07/24 07:14 Potassium 4.2 mmol/L (3.5-5.1) 08/07/24 07:14 Chloride 106 mmol/L (98-107) 08/07/24 07:14 Carbon Dioxide 29 mmol/L (22-30) 08/07/24 07:14 Anion Gap 4 mmol/L 08/07/24 07:14 BUN 10 mg/dL (7-17) 08/07/24 07:14 Creatinine 0.53 mg/dL (0.52-1.04) 08/07/24 07:14 Est GFR (CKD-EPI)AfAm >90 (>60 ml/min/1.73 sqM) 08/07/24 07:14 Est GFR (CKD-EPI)NonAf >90 (>60 ml/min/1.73 sqM) 08/07/24 07:14 Glucose 188 mg/dL (74-99) H 08/07/24 07:14 POC Glucose (mg/dL) 191 mg/dL (70-110) H 08/07/24 08:07 POC Glu Diamond Expert ID Latesha Cantrell 08/07/24 08:07 Calcium 10.3 mg/dL (8.4-10.2) H 08/07/24 07:14 Total Bilirubin 0.6 mg/dL (0.2-1.3) 08/07/24 07:14 AST 35 U/L (14-36) 08/07/24 07:14 ALT 39 U/L (4-34) H 08/07/24 07:14 Alkaline Phosphatase 125 U/L (38-126) 08/07/24 07:14 Total Protein 6.4 g/dL (6.3-8.2) 08/07/24 07:14 Albumin 3.7 g/dL (3.5-5.0) 08/07/24 07:14 TSH 5.110 mIU/L (0.465-4.680) H 08/07/24 07:14 Urine Opiates Screen Detected (NotDetected) H 08/06/24 10:56 Ur Oxycodone Screen Not Detected (NotDetected) 08/06/24 10:56 Urine Methadone Screen Not Detected (NotDetected) 08/06/24 10:56 Ur Barbiturates Screen Not Detected (NotDetected) 08/06/24 10:56 U Tricyclic Antidepress Not Detected (NotDetected) 08/06/24 10:56 Ur Phencyclidine Scrn Not Detected (NotDetected) 08/06/24 10:56 Ur Amphetamines Screen Not Detected (NotDetected) 08/06/24 10:56 U Methamphetamines Scrn Not Detected (NotDetected) 08/06/24 10:56 U Benzodiazepines Scrn Not Detected (NotDetected) 08/06/24 10:56 Urine Cocaine Screen Not Detected (NotDetected) 08/06/24 10:56 U Marijuana (THC) Screen Not Detected (NotDetected) 08/06/24 10:56 SARS-CoV-2 (PCR) Not Detected (Not Detectd) 08/06/24 15:22 08/07/24 10:45 IDENTIFYING DATA: Patient is a 48-year-old female, has 2 kids, she is , she lives with her parents in a house, she is unemployed. HPI: Patient presented to the hospital to the ER yesterday complaining of depression for several months, apparently stopped taking her medications about a month ago, was endorsing suicidal ideations with a thought of overdosing. She was admitted to the mental health unit, seen today by scenario writer. He claims that she had a "emotional breakdown" claims that she has been caring a lot for her elderly parents, she states they both have dementia. States that there is also other issues with her family and she has to take care of her kids and also their significant others. States that she has not been getting good sleep as she is taking care of one of her grandbabies. States that she has to "babysit my whole family". Claims that she does the dishes cooks and cleans. Claims that she is feeling overwhelmed depressed also endorsing anxiety. Claims that she went to her primary care's office and they recommended coming to the hospital. Claims that her sleep is poor, appetite is fair. Patient denies any suicidal or homicidal ideations intent or plan. At this time patient denies any auditory or visual hallucinations. Patient denies any flight of ideas racing thoughts and increased in goal directed behavior. Patient admits to using no recreational drugs or cigarettes PAST PSYCHIATRIC HISTORY: Patient claims that she has no significant past psychiatric history. Patient denies being on any psychiatric medications. Patient denies any previous psychiatric hospitalizations. Patient denies any psychiatric outpatient follow-up. Patient denies any history of suicide attempts in the past. PMH: as per ER note ALLERGIES: as per EMR CHEMICAL DEPENDENCY HISTORY: as per HPI FAMILY PSYCHIATRIC/SUBSTANCE USE HISTORY: Claims that her father was a , may have PTSD and dementia, mother also has dementia. SOCIAL HISTORY: Patient was born and raised in [place] over the [place]. States that she was born to a family. Claims that she is currently , she has 2 kids, she lives with her parents in a house, she is unemployed. She graduated high school and has her associates degree, denies any legal history. MENTAL STATUS EXAM: General Appearance: Patient appears to be overweight, short hair, wearing glasses, stated age is alert, directable, and attempts to cooperate. Patient appears to have poor hygiene and grooming. Behavior: Patient is seated without any agitated behavior. Attempts to cooperate Speech: Patient's speech is fluent and nonpressured. Mood/Affect: Patient reports their mood is depressed and anxious, affect is congruent Suicidality/Homicidality: Patient denies having any homicidal ideation intent or plan. Denies any suicidal ideations intent or plan Perceptions: Patient denies any visual hallucinations and denies any auditory hallucinations Though content/process: There is no evidence of any delusional thought content and thought process is linear and goal-directed. Focused on discharge, minimizing Memory and concentration: AOX3, grossly intact for the purposes of this session. Can spell "WORLD" backwards Judgment and insight: Poor STRENGTHS/WEAKNESSES: strength is that patient is resilient. Weakness is that patient has poor judgment and is impulsive INTELLECT: Average IMPRESSIONS: Suicidal ideations Major depressive disorder, without psychotic features Anxiety disorder unspecified PLAN: -Patient is admitted under voluntary status to MHU for stabilization of psychiatric symptoms and safety. Patient has signed adult voluntary form and medication consent and is placed in patient's chart. -Medications : Start Lexapro 5 mg daily for today, increase to 10 mg starting tomorrow for mood/anxiety. Melatonin 10 mg nightly for sleep -Ativan and Haldol PRN for agitation/aggression -Patient was informed of the risks, benefits and side effects of the medication and patient verbally consented to taking the medications. Patient signed med consent form and was placed in chart. -Internal Medicine consult to perform medical evaluation and physical. -NRT -not needed as patient does not smoke -SW on board for discharge planning. Encourage patient to participate in groups to work on coping skills.
[2024-08-07] MEDS: ESCITALOPRAM 5 MG TAB PO STA (11:37)
[2024-08-07 12:35] LABS: Chol/HDL Ratio 5.14 Ratio; LDL Cholesterol,Calculated 119.4 mg/dL (0.0-131.0)
[2024-08-07] MEDS: ARTIFICIAL TEARS-HYPROMELLOSE DROPS 15 ML BTL BOTH EYES PRN (12:51)
[2024-08-07 12:58] LABS: Glucose,Whole Blood 191 mg/dL (70-110)
[2024-08-07 17:45] LABS: Glucose,Whole Blood 219 mg/dL (70-110)
[2024-08-07] MEDS: IBUPROFEN 600 MG TAB PO PRN (18:51)
[2024-08-07 20:30] LABS: Glucose,Whole Blood 173 mg/dL (70-110)
[2024-08-07] MEDS: MELATONIN 5 MG TABLET PO SCH (21:24)
[2024-08-07] MEDS: HYDROcodone/APAP 5-325MG 1 EACH TAB PO PRN (21:25)
[2024-08-08 08:08] LABS: Glucose,Whole Blood 193 mg/dL (70-110)
[2024-08-08] MEDS: ESCITALOPRAM 10 MG TAB PO SCH (10:08)
[2024-08-08 12:51] LABS: Glucose,Whole Blood 178 mg/dL (70-110)
--- NOTE | 2024-08-08 14:23 | P.PN ---
Progress Note - Text Progress Note Date: 08/08/24 Interval history: Patient was seen laying in bed today and was directable and agreeable to speak with sheet writer. She claims that she is doing a bit better with regards to her mood and anxiety. She states that she was able to sleep fairly well with the melatonin last night. Denies any side effects from the Lexapro at this time. Claims that she is eating well. Has not been going to groups so far does not know that they have them. She is working on [employer]. She was asking about potential discharge planning. At this time patient denies any suicidal or homicidal ideations intent or plan. Denies any Auditory or visual hallucinations. Patient denies any side effects from the medications and has been compliant with meds. Mental status exam: General Appearance: Patient appears to be overweight, short hair, wearing glasses, stated age is alert, directable, and cooperative. Behavior: No agitated behavior. Patient is calm and directable, improving mildly Speech: Patient's speech is fluent and nonpressured. Mood/Affect: Mood is improving mildly, affect is congruent and constricted. Suicidality/Homicidality: Patient denies having any suicidal or homicidal ideation intent or plan. Perceptions: Patient denies any auditory or visual hallucinations. Though content/process: There is no evidence of any delusional thought content and thought process is linear and goal-directed. Memory and concentration: AOX3, grossly intact for the purposes of this session Judgment and insight: improving mildly Assessment/Plan: Continue with current diagnosis. Patient continues to meet criteria for inpatient psychiatric admission for symptom stabilization and safety. Patient will be maintained on current psychotropic medication regimen. Monitor for medication compliance and for any psychotropic medication side effects. Will continue to monitor ongoing response to treatment. Encouraged participation in milieu.
[2024-08-08 17:42] LABS: Glucose,Whole Blood 184 mg/dL (70-110)
[2024-08-08 20:06] LABS: Glucose,Whole Blood 120 mg/dL (70-110)
--- NOTE | 2024-08-08 20:57 | CONS ---
CONSULTATION CHIEF COMPLAINT: Depression. HISTORY OF PRESENT ILLNESS: This lady apparently has been having a lot of difficulty with depression. She apparently has responsibility for taking care of many family members without support. She even thought about killing herself. REVIEW OF SYSTEMS: She seems fine now. PHYSICAL EXAMINATION: GENERAL: She seems awake, alert, pleasant, and happy. HEAD, EARS, EYES, NOSE, MOUTH, AND THROAT: Normal. CHEST: Clear. CARDIAC: Normal. ABDOMEN: Soft, nontender. EXTREMITIES: Normal. IMPRESSION: 1. Major depression. 2. Caregiver stress. RECOMMENDATIONS: None at this time. MMODL / IJN: [id number] /
[2024-08-08 21:22] LABS: Appearance,Urine Turbid (Clear); Bilirubin,Urine Negative (Negative); Blood,Urine Negative (Negative); Color,Urine Yellow; Glucose,Urine (UA) Negative (Negative); Ketones,Urine Negative (Negative); Leukocyte Esterase,Urine Large (Negative); Mucus,Urine Many /hpf; Nitrite,Urine Negative (Negative); PH, Urine 5.5 (5.0-8.0); Protein,Urine Trace (Negative); RBC,Urine 6 /hpf (0-5); Specific Gravity,Urine 1.028 (1.001-1.035); Squamous Epithelial Cell,Urine 11 /hpf (0-4); Urobilinogen,Urine <2.0 mg/dL (<2.0); WBC,Urine 8 /hpf (0-5)
[2024-08-09 07:50] LABS: Glucose,Whole Blood 170 mg/dL (70-110)
[2024-08-09 12:33] LABS: Glucose,Whole Blood 164 mg/dL (70-110)
--- NOTE | 2024-08-09 13:42 | P.PN ---
Progress Note - Text Progress Note Date: 08/09/24 Follow-up Mediation Review Chief Complaint: I was feeling overwhelmed and suicidal. Subjective: The patient noted that she was stressed out trying to take care of her demented mother and 80-year-old father, who is also sowing early signs od dementia. She also takes care of her grandchildren. The patient noted feeling exhausted and depressed. She felt hopeless and saw no other way out except to . She told her PCP, who sent her to the hospital. The patient has never been treated for psychiatric illness. She stated that this is first time she is seeking psychiatric treatment. The patient feel much better today because she got some rest and was able to have a meeting with her family and came to an agreement to take turns taking care of the parents. She has been taking her medications. She reported no side effects. Leading questions: The patient admitted to Depression and Anxiety. Denied SI or HI. Denied symptoms consistent with psychosis Sleep and Appetite: Fair. Change in family/ living/job/financial/daily routine: No change. Change in medical condition: No change. Change in medications: No change. Side effects from Medications: None. Allergies: No change. Objective- MSE: Alert and attentive. Orientation times three. Dressed and Groomed: Appropriately. Pleasant and cooperative. Psychomotor Activity: Normal. Speech: Normal in tone, quality, and quantity. Mood: Depressed and anxious. Affect: Consistent with mood. SI or HI: None. Perceptual disturbance: None. Thought Content: No paranoia or other delusional thinking noted. Thought Process: Normal. Cognition: Intact Judgment and Insight: Poor. AIMS: Normal. Labs: No new labs. Diagnosis: Plan and Recommendations: No change Continue current Medications. Monitor MS and side effects of medications and adjust medications accordingly. Provide supportive psychotherapy. The patient provided psychoeducation and advised The patient to attend taylor activities. Medication Consent with explanation of risk/benefits and side effects: Explained and obtained.
[2024-08-09 17:30] LABS: Glucose,Whole Blood 178 mg/dL (70-110)
[2024-08-09 20:09] LABS: Glucose,Whole Blood 146 mg/dL (70-110)
[2024-08-10 07:43] LABS: Glucose,Whole Blood 164 mg/dL (70-110)
[2024-08-10 12:56] LABS: Glucose,Whole Blood 155 mg/dL (70-110)
--- NOTE | 2024-08-10 13:52 | P.PN ---
Progress Note - Text Progress Note Date: 08/10/24 Follow-up Mediation Review Chief Complaint: I feel good.. Subjective: The patient is feeling much better. She denied any depression, anxiety, or suicidal thoughts. She had no new complaints. She reported no side effects. She has been complaint with medications. Leading questions: The patient admitted to Depression and Anxiety. Denied SI or HI. Denied symptoms consistent with psychosis Sleep and Appetite: Fair. Change in family/ living/job/financial/daily routine: No change. Change in medical condition: No change. Change in medications: No change. Side effects from Medications: None. Allergies: No change. Objective- MSE: Alert and attentive. Orientation times three. Dressed and Groomed: Appropriately. Pleasant and cooperative. Psychomotor Activity: Normal. Speech: Normal in tone, quality, and quantity. Mood: I feel much better. Affect: Consistent with mood. SI or HI: None. Perceptual disturbance: None. Thought Content: No paranoia or other delusional thinking noted. Thought Process: Normal. Cognition: Intact Judgment and Insight: Fair. AIMS: Normal. Labs: No new labs. Diagnosis: No change. Plan and Recommendations: No change Continue current Medications. Monitor MS and side effects of medications and adjust medications accordingly. Provide supportive psychotherapy. The patient provided psychoeducation and advised The patient to attend taylor activities. Medication Consent with explanation of risk/benefits and side effects: Explained and obtained.
[2024-08-10 17:38] LABS: Glucose,Whole Blood 182 mg/dL (70-110)
[2024-08-10 19:59] LABS: Glucose,Whole Blood 165 mg/dL (70-110)
[2024-08-11 07:57] LABS: Glucose,Whole Blood 156 mg/dL (70-110)
[2024-08-11 08:16] VITALS: BP 125/80; PULSE 73; RESP 20; TEMP 98
--- NOTE | 2024-08-11 12:55 | P.DS ---
Providers Date of admission: 08/06/24 21:35 Expected date of discharge: 08/11/24 Attending physician: Everette Rose MD Consults: 08/06/24 22:15 Consult Physician Routine Consulting Provider: Sameer Fatima Consult Reason/Comments: H&P and medical Do you want consulting provider notified?: Yes Primary care physician: Sameer Fatima - Discharge Diagnosis(es) (1) Major depressive disorder Current Visit: Yes Status: Acute Priority: High Hospital Course: Discharge Summary HPI: IDENTIFYING DATA: Patient is a 48-year-old female, has 2 kids, she is , she lives with her parents in a house, she is unemployed. HPI: Patient presented to the hospital to the ER yesterday complaining of depression for several months, apparently stopped taking her medications about a month ago, was endorsing suicidal ideations with a thought of overdosing. She was admitted to the mental health unit, seen today by greeting card writer. He claims that she had a "emotional breakdown" claims that she has been caring a lot for her elderly parents, she states they both have dementia. States that there is also other issues with her family and she has to take care of her kids and also their significant others. States that she has not been getting good sleep as she is taking care of one of her grandbabies. States that she has to "babysit my whole family". Claims that she does the dishes cooks and cleans. Claims that she is feeling overwhelmed depressed also endorsing anxiety. Claims that she went to her primary care's office and they recommended coming to the hospital. Claims that her sleep is poor, appetite is fair. Patient denies any suicidal or homicidal ideations intent or plan. At this time patient denies any auditory or visual hallucinations. Patient denies any flight of ideas racing thoughts and increased in goal directed behavior. Patient admits to using no recreational drugs or cigarettes PPH: Patient claims that she has no significant past psychiatric history. Patient denies being on any psychiatric medications. Patient denies any previous psychiatric hospitalizations. Patient denies any psychiatric outpatient follow-up. Patient denies any history of suicide attempts in the past. PMH: as per ER note Drug and alcohol history: as per HPI Hospital Course: After admission, the patient was involved in pharmacotherapy, taylor milieu, and individual psychodynamic psychotherapy. The patient was started Lexapro. The d ose was titrated to obtain the desire effects. The patient tolerated medications well without any side effects. The patient was also involved in taylor activities. The patient attended the groups and participated well. The patient interacted with peers and staff well. The patient slowly started showing improvement. The hospital course was uneventful. The patient symptoms of depression, suicidal and homicidal ideations abated. The patient was stable to be discharged to out- patient care. The patient did not have any guns or weapons in possession at home. MSE: General Appearance: Patient appears to be overweight, short hair, wearing glasses, stated age is alert, directable, and attempts to cooperate. Patient appears to have poor hygiene and grooming. Behavior: Patient is seated without any agitated behavior. Attempts to cooperate Speech: Patient's speech is fluent and nonpressured. Mood/Affect: Patient reports their mood is depressed and anxious, affect is congruent Suicidality/Homicidality: Patient denies having any homicidal ideation intent or plan. Denies any suicidal ideations intent or plan Perceptions: Patient denies any visual hallucinations and denies any auditory hallucinations Though content/process: There is no evidence of any delusional thought content and thought process is linear and goal-directed. Focused on discharge, minimizing Memory and concentration: AOX3, grossly intact for the purposes of this session. Can spell "WORLD" backwards Judgment and insight: Poor Diagnosis: Suicidal ideations Major depressive disorder, without psychotic features Anxiety disorder unspecified Plan: The patient to be discharged today. The patient has attained good improvement since admission. He is stable to be followed as an outpatient. The patient is not suicidal or Homicidal. He does not pose any harm to self or others. The patient remains at a greater risk of self-harm or harm to others than general population on a chronic basis due to psychiatric illness and sub stance abuse. The patient will continue taking following medication post discharge. The importance of medication compliance and maintaining regular appointments at psychiatric out-pt and PCP clinic was explained and encouraged. The patient was also advised to seek alcohol counseling and attend AA/NA meetings. The understood and agreed with the recommendations. psychiatric social worker to arrange for and conduct family meeting to ensure safety upon discharge and answer any questions. The social science manager to arrange for patients follow-up appointments at [facility] for psychiatric care along with follow-up with PCP. The patient provided psychoeducation. Advised to call 911 or go to nearest ED or call this hospital in case of acute worsening of symptomatology, severe side effects or having suicidal, homicidal thoughts and feeling unsafe at home. Patient Condition at Discharge: Stable Plan - Discharge Summary Discharge Rx Participant: Yes New Discharge Prescriptions: New Escitalopram [Lexapro] 10 mg PO DAILY 15 Days #15 tab Continue Losartan Potassium 100 mg PO DAILY Levothyroxine Sodium [Synthroid] 50 mcg PO DAILY Bisoprolol-Hctz 10-6.25 mg [Ziac 10-6.25 MG] 1 tab PO DAILY Ergocalciferol (Vitamin D2) [Drisdol (50,000 Iu)] 1,250 mcg PO DIRECTED metFORMIN HCL 500 mg PO BID Hydrocodone/Acetaminophen 7.5/300mg 1 tab PO TID PRN PRN Reason: Pain Pravastatin Sodium [Pravachol] 20 mg PO DAILY Discharge Medication List Bisoprolol-Hctz 10-6.25 mg [Ziac 10-6.25 MG] 1 tab PO DAILY 08/06/24 [History] Ergocalciferol (Vitamin D2) [Drisdol (50,000 Iu)] 1,250 mcg PO DIRECTED 08/06/24 [History] Hydrocodone/Acetaminophen 7.5/300mg 1 tab PO TID PRN 08/06/24 [History] Levothyroxine Sodium [Synthroid] 50 mcg PO DAILY 08/06/24 [History] Losartan Potassium 100 mg PO DAILY 08/06/24 [History] Pravastatin Sodium [Pravachol] 20 mg PO DAILY 08/06/24 [History] metFORMIN HCL 500 mg PO BID 08/06/24 [History] Escitalopram [Lexapro] 10 mg PO DAILY 15 Days #15 tab 08/11/24 [Rx] Follow up Appointment(s)/Referral(s): [facility] [place] [Outside] - 08/12/24 11:00 am (with Gunjan goodman. You will get an email today with instructions. Please call [facility] to confirm upon dc. ) Sameer Fatima MD [Primary Care Provider] - 1-2 days Patient Instructions/Handouts: Depression (DC), Anxiety (GEN), Suicide Prevention (DC) Activity/Diet/Wound Care/Special Instructions: [facility] Discharge Info Avoid the use of street drugs and alcohol. Take all medications as prescribed. When you are in need of refills on your medications, please contact your outpatient medical provider and/or outpatient psychiatrist. Please go to your scheduled outpatient appointments for aftercare treatment. If symptoms return or become worse, call the crisis line at or and/or visit the nearest emergency room for assistance. National Suicide and Crisis Lifeline - call or text 658.
== END 2024-08-11 13:00 | disposition home or self-care (01) | DRG 754 ==
LOC: EC 10:18 → 3MHU 21:35
PROVIDERS: ADMIT Psychiatry & Neurology Psychiatry; ATTEND Psychiatry & Neurology Psychiatry
DX: F32.A Depression, unspecified (principal); R45.851 Suicidal ideations; I10 Essential (primary) hypertension; F03.94 Unspecified dementia, unspecified severity, with anxiety; F03.93 Unspecified dementia, unspecified severity, with mood disturbance; E11.9 Type 2 diabetes mellitus without complications; F41.9 Anxiety disorder, unspecified; Z79.84 Long term (current) use of oral hypoglycemic drugs; Z79.890 Hormone replacement therapy; Z91.128 Patient's intentional underdosing of medication regimen for other reason
CPT/HCPCS: 80053; 80061; 80306; 81001; 82075; 83036; 84443; 85025; 87635; 99285

== ENCOUNTER 2025-06-15 15:54 | Emergency (ER) | payer OTHER ==
[2025-06-15 15:58] VITALS: RESP 18
[2025-06-15] MEDS: METOCLOPRAMIDE 5 MG/ML 2 ML VIAL IVP STA (16:48)
[2025-06-15] MEDS: diphenhydrAMINE 50 MG/ML 1 ML VIAL IVP STA (16:48)
[2025-06-15] MEDS: SODIUM CHLORIDE 0.9% 1,000 ML IV ONE (16:48)
[2025-06-15] MEDS: KETOROLAC 15 MG/ML 1 ML VIAL IVP STA (16:48)
--- NOTE | 2025-06-15 16:52 | ED ---
Headache HPI - General Chief Complaint: Abdominal Pain Stated Complaint: headache, stomach pain, no energy Time Seen by Provider: 06/15/25 16:02 Mode of arrival: ambulatory Limitations: no limitations - History of Present Illness Initial Comments: This patient is a 49-year-old woman with history of migraine headaches who presents with 2 complaints. She states that she is having flareup of her usual headaches. She states that the pain is now in the bifrontal areas. It is the same character as usual. She describes it as moderate but not improving with her home medication. She has not had fever or chills. No neck stiffness. No neurologic symptoms. She states that there is associated photophobia but this is normal for her headaches. Patient is also complaining of having diarrhea going on for couple of days now. She is having which she describes as watery stools. No tarry or bloody stools. Patient notes that her daughter had recent "colon infection." Patient has not had any recent courses of antibiotics. There is no abdominal pain. No vomiting but there is occasional nausea. MD Complaint: "migraine" -: hour(s) Onset Description: gradual Location: right, left, frontal Severity: moderate Quality: aching Consistency: constant Improves With: nothing Worsens With: light, noise Associated Symptoms: nausea, other (Diarrhea) Treatments Prior to Arrival: Acetaminophen - Related Data Home Medications Medication Instructions Recorded Confirmed Bisoprolol-Hctz 10-6.25 mg [Ziac 1 tab PO DAILY 08/06/24 08/06/24 10-6.25 MG] Ergocalciferol (Vitamin D2) 1,250 mcg PO DIRECTED 08/06/24 08/06/24 [Drisdol (50,000 Iu)] Hydrocodone/Acetaminophen 7.5/300mg 1 tab PO TID PRN 08/06/24 08/06/24 Levothyroxine Sodium [Synthroid] 50 mcg PO DAILY 08/06/24 08/06/24 Losartan Potassium 100 mg PO DAILY 08/06/24 08/06/24 Pravastatin Sodium [Pravachol] 20 mg PO DAILY 08/06/24 08/06/24 metFORMIN HCL 500 mg PO BID 08/06/24 08/06/24 Previous Rx's Medication Instructions Recorded Escitalopram [Lexapro] 10 mg PO DAILY 15 Days #15 tab 08/11/24 Allergies Allergy/AdvReac Type Severity Reaction Status Date / Time Sulfa (Sulfonamide Allergy Rash/Hives Verified 08/06/24 12:09 Antibiotics) vancomycin Allergy Rash/Hives Verified 06/15/25 15:58 lisinopril AdvReac Cough Verified 06/15/25 15:58 Review of Systems ROS Statement: Those systems with pertinent positive or pertinent negative responses have been documented in the HPI. ROS Other: All systems not noted in ROS Statement are negative. Constitutional: Denies: fever, chills, weakness Eyes: Denies: eye pain, vision change ENT: Denies: ear pain, hearing loss Respiratory: Denies: cough, dyspnea Cardiovascular: Denies: chest pain, palpitations Gastrointestinal: Reports: nausea, diarrhea. Denies: abdominal pain, vomiting, melena, hematochezia Genitourinary: Denies: dysuria, hematuria Musculoskeletal: Denies: back pain Skin: Denies: rash Neurological: Reports: as per HPI, headache. Denies: weakness, numbness, paresthesias, confusion Past Medical History Past Medical History: Diabetes Mellitus, Hypertension Additional Past Medical History / Comment(s): migraines History of Any Multi-Drug Resistant Organisms: None Reported Past Surgical History: Tubal Ligation Additional Past Surgical History / Comment(s): uterine ablation Past Psychological History: No Psychological Hx Reported Smoking Status: Never smoker Past Alcohol Use History: None Reported Past Drug Use History: None Reported General Exam Limitations: no limitations General appearance: alert, in no apparent distress Head exam: Present: atraumatic, normocephalic Eye exam: Present: normal appearance, PERRL, EOMI. Absent: scleral icterus, conjunctival injection, nystagmus ENT exam: Present: normal oropharynx Neck exam: Present: normal inspection, full ROM. Absent: meningismus Respiratory exam: Present: normal lung sounds bilaterally. Absent: respiratory distress, wheezes, rales Cardiovascular Exam: Present: regular rate, normal rhythm, normal heart sounds. Absent: systolic murmur, diastolic murmur, rubs, gallop GI/Abdominal exam: Present: soft. Absent: distended, tenderness, guarding, rebound, rigid, mass Extremities exam: Present: normal inspection, normal capillary refill. Absent: pedal edema, calf tenderness Neurological exam: Present: alert, oriented X3, CN II-XII intact. Absent: motor sensory deficit Skin exam: Present: warm, dry, intact, normal color. Absent: rash Course Vital Signs 06/15/25 06/15/25 15:55 20:47 Temperature 98.6 F 97.8 F Pulse Rate 102 H 82 Respiratory 18 18 Rate Blood Pressure 138/83 131/79 O2 Sat by Pulse 97 99 Oximetry Medical Decision Making - Medical Decision Making Was pt. sent in by a medical professional or institution (, [facility], [facility], urgent care, hospital, or fci...) When possible be specific @ -[No] Did you speak to anyone other than the patient for history (EMS, parent, family, police, friend...)? What history was obtained from this source @ -[No] Did you review nursing and triage notes (agree or disagree)? Why? @ -[I reviewed and agree with nursing and triage notes] Were old charts reviewed (outside hosp., previous admission, EMS record, old EKG, old radiological studies, urgent care reports/EKG's, fci records)? Report findings @ -[No old charts were reviewed] Differential Diagnosis (chest pain, altered mental status, abdominal pain women, abdominal pain men, vaginal bleeding, weakness, fever, dyspnea, syncope, headache, dizziness, GI bleed, back pain, seizure, CVA, palpatations, mental health, musculoskeletal)? @ -[Differential Headache: Migraine, tension, cluster, carbon monoxide, central venous thrombosis, pension karma temporal arteritis, acute closure glaucoma, intercranial hemorrhage, mastoiditis, sinusitis, head injury, this is not meant to be an all-inclusive list. EKG interpreted by me (3pts min.). @ -[As above] X-rays interpreted by me (1pt min.). @ -[None done] CT interpreted by me (1pt min.). @ -[None done] U/S interpreted by me (1pt. min.). @ -[None done] What testing was considered but not performed or refused? (CT, X-rays, U/S, labs)? Why? @ -[None] What meds were considered but not given or refused? Why? @ -[None] Did you discuss the management of the patient with other professionals (professionals i.e. , [facility]IL[facility], [facility], lab, RT, psych nurse, social sciences department chair, ski base trimmer, teacher, fisheries officer, case consultant)? Give summary @ -[No] Was smoking cessation discussed for >3mins.? @ -[No] Was critical care preformed (if so, how long)? @ -[No] Were there social determinants of health that impacted care today? How? (Homelessness, low income, unemployed, alcoholism, drug addiction, transportation, low edu. Level, literacy, decrease access to med. care, longterm, rehab)? @ -[No] Was there de-escalation of care discussed even if they declined (Discuss DNR or withdrawal of care, Hospice)? DNR status @ -[No] What co-morbidities impacted this encounter? (DM, HTN, Smoking, COPD, CAD, Cancer, CVA, ARF, Chemo, Hep., AIDS, mental health diagnosis, sleep apnea, morbid obesity)? @ -[None] Was patient admitted / discharged? Hospital course, mention meds given and route, prescriptions, significant lab abnormalities, going to OR and other pertinent info. @ -[Patient is 49-year-old woman with history of headaches who presents to have evaluation of headache that is not responding to her usual medications. She did have combination of headache making medications here and is feeling better, stable to follow-up for further evaluation and treatment by her neurologist Undiagnosed new problem with uncertain prognosis? @ -[No] Drug Therapy requiring intensive monitoring for toxicity (Heparin, Nitro, Insulin, Cardizem)? @ -[No] Were any procedures done? @ -[No] Diagnosis/symptom? @ -[Acute migraine headache acute diarrhea Acute, or Chronic, or Acute on Chronic? @ -[Acute Uncomplicated (without systemic symptoms) or Complicated (systemic symptoms)? @ -[uncomplicated Side effects of treatment? @ -[No] Exacerbation, Progression, or Severe Exacerbation? @ -[No] Poses a threat to life or bodily function? How? (Chest pain, [place], [place], pneumonia, PE, COPD, DKA, ARF, appy, cholecystitis, CVA, Diverticulitis, Homicidal, Suicidal, threat to staff... and all critical care pts) @ -[No] All treatments are based on ideal body weight as in ED triage - Lab Data Lab Results 06/15/25 Range/Units 16:50 C. difficile Tox (PCR) Negative (Negative) Disposition Clinical Impression: Headache, Diarrhea Disposition: HOME SELF-CARE Condition: Good Instructions (If sedation given, give patient instructions): Acute Headache (DC), Acute Diarrhea (ED) Is patient prescribed a controlled substance at d/c from ED?: No Referrals: Sameer Fatima MD [Primary Care Provider] - 1-2 days
[2025-06-15 20:48] VITALS: BP 131/79; PULSE 82; TEMP 97.8
== END 2025-06-15 20:48 | disposition home or self-care (01) ==
LOC: EC 15:54
DX: G43.909 Migraine, unspecified, not intractable, without status migrainosus (principal); R19.7 Diarrhea, unspecified; Z88.1 Allergy status to other antibiotic agents; Z88.2 Allergy status to sulfonamides; Z88.8 Allergy status to other drugs, medicaments and biological substances
CPT/HCPCS: 87493; 99284; 96374; 96375; 96361; J1200; J2765; J1885